=== PATIENT | female | born 1985 | race African-American/Black ===

== ENCOUNTER 2022-02-28 17:31 | Emergency (ER) | payer MEDICAID ==
[~2022-02-28] VITALS: Ht 167.6 cm; Wt 145.0 kg
[2022-02-28] MEDS ORDERED: MORPHINE SULFATE 4 MG/ML CPJ (NOT FOR IM USE) IV ONE (18:30)
[2022-02-28] MEDS ORDERED: MORPHINE SULFATE 4 MG/ML CPJ (NOT FOR IM USE) IV NR (18:30)
[2022-02-28] MEDS ORDERED: ONDANSETRON HCL 4MG/2ML INJ IV NR (18:30)
[2022-02-28] MEDS ORDERED: ONDANSETRON HCL 4MG/2ML INJ IV ONE (18:30)
[2022-02-28 19:34] LABS: BASOPHILS % 0.9 % (0.0-2.0); EOSINOPHILS % 1.6 % (0.0-5.0); HEMATOCRIT. 38.3 % (36.0-48.0); HEMOGLOBIN. 12.3 g/dL (12.0-16.0); LYMPHOCYTES % 47.8 % (20.0-50.0); MEAN CORPUSCULAR HEMOGLOBIN 26.9 pg (28.0-32.0); MEAN CORPUSCULAR VOLUME 83.8 fL (81.0-99.0); MEAN PLATELET VOLUME 10.5 fl (7.4-10.4); MONOCYTES % 8.8 % (2.0-8.0); NEUTROPHILS % 40.9 % (40.0-76.0); PLATELET 205 x1000/uL (130-400); RED BLOOD CELL COUNT 4.57 mill/uL (4.2-5.4); RED CELL DISTRIBUTION WIDTH 16.2 % (11.6-14.6)
[2022-02-28 19:50] LABS: CHLORIDE 108 mEq/L (98-107)
[2022-02-28 20:04] LABS: PROTHROMBIN TIME 10.9 sec (9.6-11.0)
[2022-02-28 20:13] LABS: HCG SCREEN NEGATIVE
[2022-02-28 21:42] LABS: CLARITY URINE CLEAR (CLEAR); COLOR URINE YELLOW (YELLOW); KETONES URINE NEGATIVE (NEGATIVE); LEUKOCYTE ESTERASE URINE NEGATIVE (NEGATIVE); NITRITE URINE NEGATIVE (NEGATIVE); OCCULT BLOOD URINE NEGATIVE (NEGATIVE); PROTEIN URINE NEGATIVE (NEGATIVE)
[2022-02-28] MEDS ORDERED: IOHEXOL-350 100 ML BOTTLE ONE (22:17)
[2022-02-28] MEDS ORDERED: MORP15TA67 MT (23:26)
[2022-02-28] MEDS ORDERED: LACT1CAP78 MT (23:26)
[2022-02-28] MEDS ORDERED: LIDO1ADH23 TP (23:29)
[2022-02-28] MEDS ORDERED: KETOROLAC 30MG/ML VIAL IV ONE (23:30)
[2022-03-01 00:45] VITALS: BP 121/63
== END 2022-03-01 00:46 | disposition home or self-care (01) ==
LOC: ER 17:31
DX: M54.50 Low back pain, unspecified (principal); R11.2 Nausea with vomiting, unspecified; R19.7 Diarrhea, unspecified; E66.01 Morbid (severe) obesity due to excess calories; Z68.43 Body mass index [BMI] 50.0-59.9, adult; Z97.5 Presence of (intrauterine) contraceptive device; Z98.1 Arthrodesis status
CPT/HCPCS: 36415; 72132; 80053; 81003; 83690; 84703; 85025; 85610; 86850; 86900; 86901; 93005; 96374; 96375; 99285; J1885; J2270; J2405; Q9967